=== PATIENT | male | born 1935 | race Caucasian/White ===

== ENCOUNTER 2018-07-07 00:30 | Inpatient (IN) ==
[2018-07-07] MEDS ORDERED: MAGNESIUM HYDROXIDE SUSP 30 ML UDC PO PRN (03:23)
[2018-07-07] MEDS ORDERED: ALUMINUM/MAGNESIUM SUSP 30 ML UDC PO PRN (03:23)
[2018-07-07] MEDS ORDERED: GLUCAGON FOR INJ 1 MG VIAL SQ PRN (03:23)
[2018-07-07] MEDS ORDERED: GLUCOSE 40% GEL 15 GM TUBE PO PRN (03:23)
[2018-07-07] MEDS ORDERED: DEXTROSE 50% 50 ML SYRINGE IV PRN (03:23)
[2018-07-07] MEDS ORDERED: CARBOHYDRATES FOR HYPOGLYCEMIA PO PRN (03:23)
[2018-07-07] MEDS ORDERED: GLUCOSE 10 TABS/TUBE PO PRN (03:23)
[2018-07-07] MEDS ORDERED: POLYETHYLENE (MIRALAX) 17 GM PACK PO PRN (03:23)
[2018-07-07] MEDS ORDERED: ACETAMINOPHEN 325 MG TAB PO PRN (03:23)
[2018-07-07] MEDS ORDERED: NITROGLYCERIN SL 0.4 MG/TAB TAB SL PRN (03:23)
[2018-07-07 03:59] LABS: Basophils # (auto) 0.03 K/uL (0-0.2); Basophils % (auto) 0.2 %; Hematocrit (blood only) 44.5 % (42-52); Hemoglobin 14.8 g/dL (14.0-18.0); Immature Granulocytes # (auto) 0.04 K/uL (0.00-0.02); Immature Granulocytes % (auto) 0.3 %; Lymphocytes # (auto) 0.42 K/uL (1.2-3.4); Lymphocytes % (auto) 3.2 %; Mean Corpuscular Volume 88.6 fL (80-100); Mean Platelet Volume 11.7 fL (7.4-10.4); Monocytes # (auto) 0.21 K/uL (0.11-0.59); Monocytes % (auto) 1.6 %; Neutrophils # (auto) 12.33 K/uL (1.4-6.5); Neutrophils % (auto) 94.7 %; Platelet Count 209 K/uL (130-400); RDW Coefficient of Variation 13.9 % (11.5-14.5); RDW Standard Deviation 45.2 fL (36.4-46.3); Red Blood Count 5.02 M/uL (4.7-6.1); White Blood Count 13.03 K/uL (4.8-10.8)
[2018-07-07 04:00] LABS: Appearance Urine Clear (Clear); Bilirubin Urine Negative (Negative); Color Urine Yellow; Glucose Urine UA Negative (Negative); Ketones Urine Trace (Negative); Leukocyte Esterase Urine Negative (Negative); Nitrite Urine Negative (Negative); Protein Urine Negative (Negative); Specific Gravity Urine 1.017 (1.000-1.030); Urobilinogen Urine Negative (Negative)
--- NOTE | 2018-07-07 04:32 | History & Physical Report ---
Date of Service July 07, 2018 Assessment & Plan (1) Shortness of breath: 83-year-old male was transferred from [facility] and admitted on 07 July 2019 for shortness of breath. Shortness of breath: Patient was transferred for concerns for acute COPD exacerbation as well as respiratory failure. By report, he was in severe respiratory distress with accessory muscle use on arrival to [facility]. The records notes no acute findings on their CXR and an EKG which was borderline but regular tachycardia with rate 100. There the reported concern was a pH of 7.49 on ABG. Same blood gas noted pCO2 of 29, bicarb 22. Troponin negative there. BNP of 32. Rapid influenza negative. Received solumedrol 125 mg there. - Repeating labs on arrival here. - Will keep on azithromycin for COPD exacerbation. - Started on PO prednisone 50 mg daily. Kept on his home Advair. Albuterol prn for SOB or cough/wheezing. SIRS: At [place], temp 100.5, heart rate 97, BP 146/69, WBC of 15, and a lactate of 2.1 (later 1.3). They sent blood cultures. He was empirically treated with ceftriaxone and azithromycin. - Will order CTA chest for further clarification of why he was in so much distress and to look for an infiltrate. - For now, no additional antibiotics as no obvious other evidence of an acute infectious issue. Hematuria: At [place], UA was positive for RBCs. - Will recheck UA here. Ongoing medical issues: - Diabetes: At home is on metformin [address] on insulin sliding scale here and check a HbA1C. - Hypertension: At home is on amlodipine 5 mg daily. Will continue here. -Hypothyroidism: At home is on Synthroid 50 mcg daily. Will continue here. - GERD: At home is on omeprazole 20 mg daily. Will switch to protonix here. - COPD, asthma: See above discussion. At home he is on Advair 250-50 mcg 1 puff twice a day as well as albuterol 4 times a day. Normally on baseline 3L NC oxygen all day/night. Code status: Full code. Diet: Diabetes. DVT prophy: Lovenox. PT/OT: Deferred. Disbo: Admit to PCU/telemetry. (2) Chronic obstructive pulmonary disease: (3) Asthma: (4) SIRS (systemic inflammatory response syndrome): (5) Hematuria: (6) Diabetes mellitus, type 2: (7) Hypertension: (8) Hypothyroidism: (9) GERD (gastroesophageal reflux disease): History of Present Illness Primary Care Provider: NO PCP 83-year-old male initially presented to [facility] complaining of shortness of breath that began the day prior to admission. He says that it was abrupt in onset, worse with walking and exertion, improved with rest. He has a known history of COPD and says his last exacerbation was perhaps 1 month ago ( requiring steroids).. He has noticed recent cough, question of a fever, but no chest pain or other discomfort. At [place] he was treated with treated with Solu-Medrol 125 mcg, DuoNeb, placed on BiPAP, and was given 1 gm of ceftriaxone and 500 mg of azithromycin. Blood cultures were sent and he was given a liter of normal saline. A trial off of BiPAP was apparently unsuccessful. On interview here, found patient resting very comfortably in bed. He says he does not have any present chest pain, shortness of breath, and that overall he feels quite well. He says he normally wears 3 L nasal cannula oxygen all day and night. He has no particular acute concerns. Allergies Allergy/AdvReac Type Severity Reaction Status Date / Time No Known Allergies Allergy Unverified 07/07/18 03:24 Home Medications Home Medications Medication Instructions Recorded Confirmed Type albuterol sulfate [Ventolin HFA] 2 puff INHALATION QID 07/07/18 07/07/18 History amlodipine 5 mg PO DAILY 07/07/18 07/07/18 History fluticasone-salmeterol [Advair 1 inh INHALATION BID 07/07/18 07/07/18 History Diskus] levothyroxine [Synthroid] 50 mcg PO DAILY 07/07/18 07/07/18 History metformin 1,000 mg PO DAILY 07/07/18 07/07/18 History omeprazole 20 mg PO DAILY 07/07/18 07/07/18 History Past Med/Surg History Medical History Hypertension Hypothyroidism Diabetes mellitus, type 2 Chronic obstructive pulmonary disease Social History Current Living Situation: Spouse Feels Safe at Home: Yes Safety Concerns: Feels Safe At This Time Smoking Status: Never smoker Hx Alcohol Use: No Hx Substance Use: No Beliefs That Will Affect Care: None Preferred Language: Korean Communication Ability: Effective Weaving Loom Operator Required: No Review of Systems Constitutional: Denies chills, focal weakness Eyes: Denies any visual loss or diplopia ENT: Denies any ear/nose/throat pain or difficulty speaking or swallowing Respiratory: See HPI. Cardiovascular: Denies any chest pain or feeling of edema Gastrointestinal: Denies any abdominal pain, nausea/vomiting/diarrhea Musculoskeletal: Denies any acute extremity pains, myalgias, or focal weakness Skin: Denies any known acute rashes or lesions Neuro: Denies any headache, acute focal weakness or numbness, or difficulties with speech or swallow. Psych: Denies any recent depression or anxiety Physical Exam 2 Vital Signs (Past 24 Hours): Last Vital Signs Temp 36.7 C 07/07/18 02:55 Resp 20 07/07/18 02:55 BP 146/77 H 07/07/18 02:55 Pulse Ox 94 07/07/18 02:55 Physical Exam: GENERAL: Awake, alert, well-appearing, in no distress HENT: Normocephalic, atraumatic. Oropharynx unremarkable. EYES: Normal conjunctiva. Sclera non-icteric. NECK: Inspection normal. Non-tender. Supple and full ROM. No nuchal rigidity. CARDIAC: +S1S2 RRR, no murmurs. RESPIRATORY: Clear to auscultation. No wheezes or rales. Normal respiratory effort. NC oxygen in place. GI: +BS, soft, non-distended. No tenderness to palpation. No rebound or guarding. No appreciable masses. EXTREMITIES: No pedal edema or calf tenderness. Moving all extremities naturally and easily. NEURO: No gross neuro deficits. Lines: PIV. Results & Data Laboratory Results 07/07/18 07/07/18 07/07/18 Range/Units 03:46 03:46 03:46 WBC (4.8-10.8) K/uL RBC (4.7-6.1) M/uL Hgb (14.0-18.0) g/dL Hct (42-52) % MCV (80-100) fL MCH (25-34) pg MCHC (32-36) g/dL RDW Std Deviation (36.4-46.3) fL RDW Coeff of Johnny (11.5-14.5) % Plt Count (130-400) K/uL MPV (7.4-10.4) fL Immature Gran % (Auto) % Neut % (Auto) % Lymph % (Auto) % [place] % (Auto) % Eos % (Auto) % Baso % (Auto) % Immature Gran # (Auto) (0.00-0.02) K/uL Neut # (Auto) (1.4-6.5) K/uL Lymph # (Auto) (1.2-3.4) K/uL [place] # (Auto) (0.11-0.59) K/uL Eos # (Auto) (0-0.5) K/uL Baso # (Auto) (0-0.2) K/uL PT 11.2 (9.0-12.0) Seconds INR 1.1 (0.9-1.1) APTT 31.0 (21.0-31.0) Seconds PTT Ratio 1.2 Sodium 137 (136-145) mmol/L Potassium 4.5 (3.5-5.1) mmol/L Chloride 104 (98-107) mmol/L Carbon Dioxide 23 (21-32) mmol/L Anion Gap 10.0 (3-11) BUN 16 (7-18) mg/dl Creatinine 1.01 (0.6-1.4) mg/dl Est Cr Clr Drug Dosing 61.1 ml/min Est GFR ( Amer) 80.5 Est GFR (Non-Af Amer) 69.4 BUN/Creatinine Ratio 15.4 (10-20) Glucose 216 H (70-99) mg/dl Estimat Average Glucose Pending Hemoglobin A1c Pending Calcium 8.5 (8.5-10.1) mg/dl Magnesium 1.8 (1.8-2.4) mg/dl Total Bilirubin 1.1 H (0.2-1) mg/dl AST 18 (15-37) U/L ALT 26 (12-78) U/L Alkaline Phosphatase 62 (45-117) U/L Troponin I < 0.015 (0-0.045) ng/ml Total Protein 7.4 (6.4-8.2) gm/dl Albumin 3.3 L (3.4-5.0) gm/dl Globulin 4.1 H (2.5-4.0) gm/dl Albumin/Globulin Ratio 0.8 L (0.9-2) Specimen Hemolysis Urine Color Urine Appearance (Clear) Urine pH (4.5-7.5) Ur Specific [place] (1.000-1.030) Urine Protein (Negative) Urine Glucose (UA) (Negative) Urine Ketones (Negative) Urine Blood (Negative) Urine Nitrite (Negative) Urine Bilirubin (Negative) Urine Urobilinogen (Negative) Ur Leukocyte Esterase (Negative) 07/07/18 07/07/18 Range/Units 03:46 03:35 WBC 13.03 H (4.8-10.8) K/uL RBC 5.02 (4.7-6.1) M/uL Hgb 14.8 (14.0-18.0) g/dL Hct 44.5 (42-52) % MCV 88.6 (80-100) fL MCH 29.5 (25-34) pg MCHC 33.3 (32-36) g/dL RDW Std Deviation 45.2 (36.4-46.3) fL RDW Coeff of Johnny 13.9 (11.5-14.5) % Plt Count 209 (130-400) K/uL MPV 11.7 H (7.4-10.4) fL Immature Gran % (Auto) 0.3 % Neut % (Auto) 94.7 % Lymph % (Auto) 3.2 % [place] % (Auto) 1.6 % Eos % (Auto) 0.0 % Baso % (Auto) 0.2 % Immature Gran # (Auto) 0.04 H (0.00-0.02) K/uL Neut # (Auto) 12.33 H (1.4-6.5) K/uL Lymph # (Auto) 0.42 L (1.2-3.4) K/uL [place] # (Auto) 0.21 (0.11-0.59) K/uL Eos # (Auto) 0.00 (0-0.5) K/uL Baso # (Auto) 0.03 (0-0.2) K/uL PT (9.0-12.0) Seconds INR (0.9-1.1) APTT (21.0-31.0) Seconds PTT Ratio Sodium (136-145) mmol/L Potassium (3.5-5.1) mmol/L Chloride (98-107) mmol/L Carbon Dioxide (21-32) mmol/L Anion Gap (3-11) BUN (7-18) mg/dl Creatinine (0.6-1.4) mg/dl Est Cr Clr Drug Dosing ml/min Est GFR ( Amer) Est GFR (Non-Af Amer) BUN/Creatinine Ratio (10-20) Glucose (70-99) mg/dl Estimat Average Glucose Hemoglobin A1c Calcium (8.5-10.1) mg/dl Magnesium (1.8-2.4) mg/dl Total Bilirubin (0.2-1) mg/dl AST (15-37) U/L ALT (12-78) U/L Alkaline Phosphatase (45-117) U/L Troponin I (0-0.045) ng/ml Total Protein (6.4-8.2) gm/dl Albumin (3.4-5.0) gm/dl Globulin (2.5-4.0) gm/dl Albumin/Globulin Ratio (0.9-2) Specimen Hemolysis Urine Color Yellow Urine Appearance Clear (Clear) Urine pH 5.0 (4.5-7.5) Ur Specific [place] 1.017 (1.000-1.030) Urine Protein Negative (Negative) Urine Glucose (UA) Negative (Negative) Urine Ketones Trace H (Negative) Urine Blood Negative (Negative) Urine Nitrite Negative (Negative) Urine Bilirubin Negative (Negative) Urine Urobilinogen Negative (Negative) Ur Leukocyte Esterase Negative (Negative) Code Status & VTE Plan Code Status Full code VTE Prophylaxis Plan VTE Prophylaxis will be ordered: Yes Supervising Physician Co-Signing Physician Notes Attending addendum: I have physically seen this patient, have supervised the medical residents activities, and agree with the H&P unless as otherwise noted. Assessment and Plan: Acute respiratory failure with hypoxia/COPD-- Accepted in transfer from [place] emergency department to the MICU at [facility]. Upon arrival, with good oxygenation, BiPAP was discontinued, and patient was placed on nasal cannula oxygen, with target to decrease to lowest oxygen possible to give pulse ox approximately 92%. Patient is typically on 3 L nasal cannula oxygen at home. Chest x-ray from [place] was normal, and with acute onset of shortness of breath , would be concerned about the possibility of pulmonary embolism. CT for PE ordered and pending. Will assess for subtle infiltrate as well. Continue azithromycin 500 mg IV for now. Duonebs every 4 hours while awake and every 2 hours when necessary. Continue oral prednisone, and Advair Diskus. Remainder of orders and notations as noted. Resident Activity Tracking Resident Involvement: Resident Care Provided Care Provided: Adult [facility]
[2018-07-07 04:34] LABS: INR 1.1 (0.9-1.1); Partial Thromboplastin Ratio 1.2; Prothrombin Time 11.2 Seconds (9.0-12.0)
[2018-07-07 04:36] LABS: Mean Corpuscular Hgb Conc 33.3 g/dL (32-36)
[2018-07-07 04:37] LABS: Alanine Aminotransferase 26 U/L (12-78); Albumin Globulin Ratio 0.8 (0.9-2); Albumin Level 3.3 gm/dl (3.4-5.0); Alkaline Phosphatase 62 U/L (45-117); Aspartate Aminotransferase 18 U/L (15-37); BUN Creatinine Ratio 15.4 (10-20); Bilirubin,Total 1.1 mg/dl (0.2-1); Blood Urea Nitrogen 16 mg/dl (7-18); Calcium 8.5 mg/dl (8.5-10.1); Carbon Dioxide 23 mmol/L (21-32); Chloride 104 mmol/L (98-107); Creatinine Clr Calc Pharmacy 61.1 ml/min; Est GFR (African American) 80.5; Est GFR (Non-African American) 69.4; Globulin 4.1 gm/dl (2.5-4.0); Glucose 216 mg/dl (70-99); Magnesium 1.8 mg/dl (1.8-2.4); Potassium 4.5 mmol/L (3.5-5.1); Sodium 137 mmol/L (136-145); Total Protein 7.4 gm/dl (6.4-8.2); Troponin I < 0.015 ng/ml (0-0.045)
[2018-07-07] MEDS ORDERED: ALBUTEROL HFA 8 GM INHALER INH PRN (04:50)
[2018-07-07] MEDS ORDERED: OPTIRAY 320 125ml IV PRN (05:39)
[2018-07-07] MEDS: LEVOTHYROXINE SODIUM 50 MCG TABLET PO SCH (06:46)
[2018-07-07 07:09] LABS: Estimated Average Glucose 123 mg/dl
--- NOTE | 2018-07-07 07:35 | CT Scan Report ---
CT ANGIOGRAPHY OF THE CHEST, PULMONARY EMBOLUS PROTOCOL CLINICAL HISTORY: Shortness of breath. COMPARISON STUDY: No previous studies for comparison. TECHNIQUE: Following IV administration of 116 mL of Optiray-320, helical axial images of the chest we re obtained utilizing the pulmonary embolus protocol. Maximal intensity projections and sagittal and coronal reformats were viewed on an independent 3D workstation. IV contrast was administered withou t complication. Automated exposure control was utilized for the study. A dose lowering technique wa s utilized adhering to the principles of ALARA. CT DOSE: 520.11 mGy.cm FINDINGS: No pulmonary emboli are identified. The size of the heart is normal. There is mild dilatat ion of the central pulmonary arteries. There is moderate coronary artery calcification. There is no p ericardial effusion. There are a few mildly enlarged right hilar lymph nodes measure up to 1.2 cm in short axis diameter. Severe emphysema is noted. There is mild right lower lobe opacity. Biapical scar ring is suspected. There is no pneumothorax. There is no pleural effusion. Multifocal mucus plugging is noted, most evident within the right lower lobe. Bony thorax is unremarkable. Fatty infiltration o f the liver is noted. There is a suspected lateral segment hepatic cyst. IMPRESSION: 1. No pulmonary emboli identified. 2. Severe emphysema. 3. Right lower lobe subpleural opacity which may reflect pneumonia or atelectasis. Mucus plugging, mo st evident within the right lower lobe. 4. Mildly enlarged right hilar lymph nodes which may be reactive. A follow-up chest CT in 3 months to ensure resolution is recommended. 5. Fatty infiltration of the liver. 6. Mild dilatation of the central pulmonary arteries which raises the possibility of pulmonary artery hypertension. Electronically signed by: Jagjit Perla M.D. 07/07/2018 7:34 AM
[2018-07-07] MEDS: ENOXAPARIN INJ 40 MG/0.4 ML SYR SQ SCH (08:22)
[2018-07-07] MEDS: AMLODIPINE BESYLATE 5 MG TAB PO SCH (08:23)
[2018-07-07] MEDS: FLUTICASONE/SALMETEROL 250/50 (ADVAIR) 14 PUFF/1 INHALER INH SCH ×2 (08:23→20:32)
[2018-07-07] MEDS: PANTOprazole 40 MG TAB PO SCH (08:23)
[2018-07-07] MEDS: INSULIN ASPART 100 UNITS/ML 3 ML PEN SC SCH ×4 (08:24→20:32)
--- NOTE | 2018-07-07 12:10 | Hospitalist Progress Note ---
Date of Service July 07, 2018 Assessment & Plan (1) Shortness of breath: (2) Chronic obstructive pulmonary disease: (3) Asthma: (4) SIRS (systemic inflammatory response syndrome): (5) Hematuria: (6) Diabetes mellitus, type 2: (7) Hypertension: (8) Hypothyroidism: (9) GERD (gastroesophageal reflux disease): 83-year-old male with history of COPD, chronic respiratory failure O2 dependent was transferred from [facility] and admitted on 07 July 2019 for acute on chronic respiratory failure, COPD exacerbation, Acute on chronic respiratory failure chronic respiratory failure O2 dependent, Associated with shortness of breath: Report from outside hospital, pH of 7.49 on ABG. Same blood gas noted pCO2 of 29, bicarb 22. Troponin negative there. BNP of 32. Rapid influenza negative. Received solumedrol 125 mg there. Possible sIRs, at [place], temp 100.5, heart rate 97, BP 146/69, WBC of 15, and a lactate of 2.1 (later 1.3). Culture was sent, they empirically started ceftriaxone and azithromycin. Continue azithromycin for COPD exacerbation, and Rocephin today because significant dark yellow sputum CT was done after arriving to the hospital, per report: 1. No pulmonary emboli identified. 2. Severe emphysema. 3. Right lower lobe subpleural opacity which may reflect pneumonia or atelectasis. Mucus plugging, most evident within the right lower lobe. 4. Mildly enlarged right hilar lymph nodes which may be reactive. A follow-up chest CT in 3 months to ensure resolution is recommended. 5. Fatty infiltration of the liver. 6. Mild dilatation of the central pulmonary arteries which raises the possibility of pulmonary artery hypertension. Hematuria: At [place], UA was positive for RBCs. Repeat UA was negative, Diabetes with a1c 5.7: At home is on metformin 1000 mg daily. Continue on insulin sliding scale here and check a HbA1C. Hypertension: At home is on amlodipine 5 mg daily. Will continue here. Hypothyroidism: At home is on Synthroid 50 mcg daily. Will continue here. GERD: At home is on omeprazole 20 mg daily. Will switch to protonix here. Full code. px with Lovenox. PT/OT: orderred Subjective Reported has a lot yellow dark sputum cough up this morning, however generalized shortness of breath is better, was on 3 L/min is nasal cannula oxygen at home, currently is in the same level, Denies chest pain, patient is eating lunch, Review of Systems Constitutional: Positive weakness, or fatigue Respiratory: See HPI, occasional wheezing, positive dyspnea on exertion Cardiac: No chest pain, No orthopnea, No PND, No claudication, No palpitations , Abdomen: No pain, No nausea, No vomiting, No diarrhea, No constipation, No GI bleeding Musculoskeletal: No joint pain, No muscle pain, No swelling, No calf pain, No problem reported : No dysuria, No urinary frequency, No incontinence, No hematuria Neurologic: No paralysis, No weakness, No numbness/tingling, No vertigo, No balance problems Psychiatric: No depression symptoms, No anhedonism, No anxiety, No insomnia, No substance abuse Heme: No abnormal bleeding/bruising, No clotting problems, No swollen lymph nodes, No night sweats Skin: No rash, No itch, No new/changing skin lesions, No color change, No bleeding Physical Exam 2 Vital Signs (Past 24 Hours): Last Vital Signs Temp 36.4 C L 07/07/18 07:39 Pulse 66 07/07/18 07:39 Resp 21 07/07/18 07:39 BP 128/75 07/07/18 07:39 Pulse Ox 90 07/07/18 07:39 Physical Exam: General Appearance: Thin, frail, mild labored breathing, mild labored breathing when speaking, WD/WN, no apparent distress, Eyes: normal inspection, PERRL, EOMI, sclerae normal ENT: normal ENT inspection, hearing grossly normal, pharynx normal Neck: supple, no adenopathy, thyroid normal, no JVD, no carotid bruits, trachea midline Respiratory/Chest: chest non-tender, decreased breath sounds, occasional wheezing, no crackle, Cardiovascular: regular rate, rhythm, no JVD, no murmur Abdomen: normal bowel sounds, non tender, soft, no organomegaly, Extremities: normal range of motion, non-tender, normal inspection, no pedal edema, no calf tenderness, normal capillary refill , pelvis stable, joint has no limited range of motion, capillary refill is normal, no cyanosis clubbing Neurologic/Psychiatric: risk control product liability director II-XII nml as tested, no motor/sensory deficits, alert, normal mood/affect, oriented x 3 Skin: normal color, warm/dry, no rash Lymphatic: no adenopathy Results & Data Laboratory Results Laboratory Results - last 24 hr 07/07/18 07/07/18 07/07/18 03:35 03:46 03:46 WBC 13.03 H RBC 5.02 Hgb 14.8 Hct 44.5 MCV 88.6 MCH 29.5 MCHC 33.3 RDW Std Deviation 45.2 RDW Coeff of Johnny 13.9 Plt Count 209 MPV 11.7 H Immature Gran % (Auto) 0.3 Neut % (Auto) 94.7 Lymph % (Auto) 3.2 [place] % (Auto) 1.6 Eos % (Auto) 0.0 Baso % (Auto) 0.2 Immature Gran # (Auto) 0.04 H Neut # (Auto) 12.33 H Lymph # (Auto) 0.42 L [place] # (Auto) 0.21 Eos # (Auto) 0.00 Baso # (Auto) 0.03 PT 11.2 INR 1.1 APTT 31.0 PTT Ratio 1.2 Sodium Potassium Chloride Carbon Dioxide Anion Gap BUN Creatinine Est Cr Clr Drug Dosing Est GFR ( Amer) Est GFR (Non-Af Amer) BUN/Creatinine Ratio Glucose POC Glucose Estimat Average Glucose Hemoglobin A1c Calcium Magnesium Total Bilirubin AST ALT Alkaline Phosphatase Troponin I Total Protein Albumin Globulin Albumin/Globulin Ratio Specimen Hemolysis Urine Color Yellow Urine Appearance Clear Urine pH 5.0 Ur Specific [place] 1.017 Urine Protein Negative Urine Glucose (UA) Negative Urine Ketones Trace H Urine Blood Negative Urine Nitrite Negative Urine Bilirubin Negative Urine Urobilinogen Negative Ur Leukocyte Esterase Negative 07/07/18 07/07/18 07/07/18 03:46 03:46 07:38 WBC RBC Hgb Hct MCV MCH MCHC RDW Std Deviation RDW Coeff of Johnny Plt Count MPV Immature Gran % (Auto) Neut % (Auto) Lymph % (Auto) [place] % (Auto) Eos % (Auto) Baso % (Auto) Immature Gran # (Auto) Neut # (Auto) Lymph # (Auto) [place] # (Auto) Eos # (Auto) Baso # (Auto) PT INR APTT PTT Ratio Sodium 137 Potassium 4.5 Chloride 104 Carbon Dioxide 23 Anion Gap 10.0 BUN 16 Creatinine 1.01 Est Cr Clr Drug Dosing 61.1 Est GFR ( Amer) 80.5 Est GFR (Non-Af Amer) 69.4 BUN/Creatinine Ratio 15.4 Glucose 216 H POC Glucose 191 H Estimat Average Glucose 123 Hemoglobin A1c 5.9 H Calcium 8.5 Magnesium 1.8 Total Bilirubin 1.1 H AST 18 ALT 26 Alkaline Phosphatase 62 Troponin I < 0.015 Total Protein 7.4 Albumin 3.3 L Globulin 4.1 H Albumin/Globulin Ratio 0.8 L Specimen Hemolysis Urine Color Urine Appearance Urine pH Ur Specific [place] Urine Protein Urine Glucose (UA) Urine Ketones Urine Blood Urine Nitrite Urine Bilirubin Urine Urobilinogen Ur Leukocyte Esterase 07/07/18 11:34 WBC RBC Hgb Hct MCV MCH MCHC RDW Std Deviation RDW Coeff of Johnny Plt Count MPV Immature Gran % (Auto) Neut % (Auto) Lymph % (Auto) [place] % (Auto) Eos % (Auto) Baso % (Auto) Immature Gran # (Auto) Neut # (Auto) Lymph # (Auto) [place] # (Auto) Eos # (Auto) Baso # (Auto) PT INR APTT PTT Ratio Sodium Potassium Chloride Carbon Dioxide Anion Gap BUN Creatinine Est Cr Clr Drug Dosing Est GFR ( Amer) Est GFR (Non-Af Amer) BUN/Creatinine Ratio Glucose POC Glucose 163 H Estimat Average Glucose Hemoglobin A1c Calcium Magnesium Total Bilirubin AST ALT Alkaline Phosphatase Troponin I Total Protein Albumin Globulin Albumin/Globulin Ratio Specimen Hemolysis Urine Color Urine Appearance Urine pH Ur Specific [place] Urine Protein Urine Glucose (UA) Urine Ketones Urine Blood Urine Nitrite Urine Bilirubin Urine Urobilinogen Ur Leukocyte Esterase
[2018-07-07] MEDS: cefTRIAXone SODIUM 1,000 MG in DEXTROSE 5% 50 ML IV SCH (13:09)
[2018-07-07] MEDS: AZITHROMYCIN 250 MG TAB PO SCH (20:32)
[2018-07-07] MEDS: predniSONE 50 MG TAB PO SCH (20:32)
[2018-07-08] MEDS: LEVOTHYROXINE SODIUM 50 MCG TABLET PO SCH (05:37)
[2018-07-08 05:45] LABS: Basophils # (auto) 0.01 K/uL (0-0.2); Basophils % (auto) 0.1 %; Hematocrit (blood only) 45.5 % (42-52); Hemoglobin 15.1 g/dL (14.0-18.0); Immature Granulocytes # (auto) 0.09 K/uL (0.00-0.02); Immature Granulocytes % (auto) 0.6 %; Lymphocytes # (auto) 0.83 K/uL (1.2-3.4); Lymphocytes % (auto) 5.3 %; Mean Corpuscular Hgb Conc 33.2 g/dL (32-36); Mean Corpuscular Volume 88.5 fL (80-100); Mean Platelet Volume 11.9 fL (7.4-10.4); Monocytes # (auto) 0.75 K/uL (0.11-0.59); Monocytes % (auto) 4.8 %; Neutrophils # (auto) 14.07 K/uL (1.4-6.5); Neutrophils % (auto) 89.2 %; Platelet Count 264 K/uL (130-400); RDW Coefficient of Variation 13.8 % (11.5-14.5); Red Blood Count 5.14 M/uL (4.7-6.1); White Blood Count 15.75 K/uL (4.8-10.8)
[2018-07-08 06:25] LABS: BUN Creatinine Ratio 28.9 (10-20); Creatinine Clr Calc Pharmacy 66.3 ml/min; Est GFR (African American) 88.9; Est GFR (Non-African American) 76.7; Potassium 4.3 mmol/L (3.5-5.1)
[2018-07-08] MEDS: AMLODIPINE BESYLATE 5 MG TAB PO SCH (08:46)
[2018-07-08] MEDS: FLUTICASONE/SALMETEROL 250/50 (ADVAIR) 14 PUFF/1 INHALER INH SCH ×2 (08:46→21:03)
[2018-07-08] MEDS: ENOXAPARIN INJ 40 MG/0.4 ML SYR SQ SCH (08:46)
[2018-07-08] MEDS: PANTOprazole 40 MG TAB PO SCH (08:47)
[2018-07-08] MEDS: cefTRIAXone SODIUM 1,000 MG in DEXTROSE 5% 50 ML IV SCH (08:51)
[2018-07-08] MEDS: INSULIN ASPART 100 UNITS/ML 3 ML PEN SC SCH ×4 (08:53→21:02)
--- NOTE | 2018-07-08 13:56 | Hospitalist Progress Note ---
Date of Service July 08, 2018 Assessment & Plan (1) Shortness of breath: (2) Chronic obstructive pulmonary disease: (3) Asthma: (4) SIRS (systemic inflammatory response syndrome): (5) Hematuria: (6) Diabetes mellitus, type 2: (7) Hypertension: (8) Hypothyroidism: (9) GERD (gastroesophageal reflux disease): 83-year-old male with history of COPD, chronic respiratory failure O2 dependent was transferred from [facility] and admitted on 07 July 2019 for acute on chronic respiratory failure, COPD exacerbation, Acute on chronic respiratory failure chronic respiratory failure O2 dependent, Associated with shortness of breath: Report from outside hospital, pH of 7.49 on ABG. Same blood gas noted pCO2 of 29, bicarb 22. Troponin negative there. BNP of 32. Rapid influenza negative. Received solumedrol 125 mg Stable and continue improving, currently nasal cannula oxygen is 3.5 L/min, he was using 3 L/min at home, Possible sIRs, at [place], temp 100.5, heart rate 97, BP 146/69, WBC of 15, and a lactate of 2.1 (later 1.3). Culture was sent, they empirically started ceftriaxone and azithromycin. Continue azithromycin for COPD exacerbation, and Rocephin today because significant dark yellow sputum CT was done after arriving to the hospital, per report: 1. No pulmonary emboli identified. 2. Severe emphysema. 3. Right lower lobe subpleural opacity which may reflect pneumonia or atelectasis. Mucus plugging, most evident within the right lower lobe. 4. Mildly enlarged right hilar lymph nodes which may be reactive. A follow-up chest CT in 3 months to ensure resolution is recommended. 5. Fatty infiltration of the liver. 6. Mild dilatation of the central pulmonary arteries which raises the possibility of pulmonary artery hypertension. We will continue nebulizer treatment, IV antibiotics include Rocephin plus oral azithromycin, the new Advair inhaler Hematuria: At [place], UA was positive for RBCs. Repeat UA was negative, Diabetes with a1c 5.7: At home is on metformin 1000 mg daily. Continue on insulin sliding scale here and check a HbA1C. Hypertension: At home is on amlodipine 5 mg daily. Will continue here. Hypothyroidism: At home is on Synthroid 50 mcg daily. Will continue here. GERD: At home is on omeprazole 20 mg daily. Will switch to protonix here. Full code. px with Lovenox. PT/OT: wlilem Hooker, stable on nasal cannula oxygen, continue IV antibiotics, planning to discharge home tomorrow with oral antibiotic Subjective Reported has a lot yellow dark sputum cough up this morning, however generalized shortness of breath is better, was on 3 L/min is nasal cannula oxygen at home, currently is in the same level, Generally feeling better, out of bed to the chair, nasal cannula oxygen has been decreased to 3-1/2 L/min, Review of Systems Constitutional: Positive weakness, or fatigue Respiratory: See HPI, occasional wheezing, positive dyspnea on exertion Cardiac: No chest pain, No orthopnea, Abdomen: No pain, No nausea, No vomiting, No diarrhea, No constipation, No GI bleeding Musculoskeletal: No joint pain, No muscle pain, No swelling, No calf pain, No problem reported : No dysuria, No urinary frequency, No incontinence, No hematuria Neurologic: No paralysis, No weakness, No numbness/tingling, No vertigo, No balance problems Psychiatric: No depression symptoms, No anhedonism, No anxiety, No insomnia, No substance abuse Heme: No abnormal bleeding/bruising, No clotting problems, No swollen lymph nodes, No night sweats Skin: No rash, No itch, No new/changing skin lesions, No color change, No bleeding Physical Exam 2 Vital Signs (Past 24 Hours): Last Vital Signs Temp 36.3 C L 07/08/18 11:19 Pulse 78 07/08/18 11:19 Resp 28 H 07/08/18 11:19 BP 120/61 07/08/18 11:19 Pulse Ox 93 07/08/18 11:19 Physical Exam: General Appearance: Thin, frail, mild labored breathing, still mild labored breathing when speaking, WD/WN, no apparent distress, Eyes: normal inspection, PERRL, EOMI, sclerae normal ENT: normal ENT inspection, hearing grossly normal, pharynx normal Neck: supple, no adenopathy, thyroid normal, no JVD, no carotid bruits, trachea midline Respiratory/Chest: chest non-tender, decreased breath sounds, occasional wheezing, no crackle, Cardiovascular: regular rate, rhythm, no JVD, no murmur Abdomen: normal bowel sounds, non tender, soft, no organomegaly, Extremities: normal range of motion, non-tender, normal inspection, no pedal edema, no calf tenderness, normal capillary refill , pelvis stable, Neurologic/Psychiatric: outsole tacker II-XII nml as tested, no motor/sensory deficits, alert, normal mood/affect, oriented x 3 Skin: normal color, warm/dry, no rash Lymphatic: no adenopathy Results & Data Laboratory Results Laboratory Results - last 24 hr 07/07/18 07/07/18 07/08/18 16:22 20:24 05:25 WBC 15.75 H RBC 5.14 Hgb 15.1 Hct 45.5 MCV 88.5 MCH 29.4 MCHC 33.2 RDW Std Deviation 45.0 RDW Coeff of Johnny 13.8 Plt Count 264 MPV 11.9 H Immature Gran % (Auto) 0.6 Neut % (Auto) 89.2 Lymph % (Auto) 5.3 [place] % (Auto) 4.8 Eos % (Auto) 0.0 Baso % (Auto) 0.1 Immature Gran # (Auto) 0.09 H Neut # (Auto) 14.07 H Lymph # (Auto) 0.83 L [place] # (Auto) 0.75 H Eos # (Auto) 0.00 Baso # (Auto) 0.01 Sodium Potassium Chloride Carbon Dioxide Anion Gap BUN Creatinine Est Cr Clr Drug Dosing Est GFR ( Amer) Est GFR (Non-Af Amer) BUN/Creatinine Ratio Glucose POC Glucose 157 H 142 H Calcium 07/08/18 07/08/18 07/08/18 05:25 07:23 11:17 WBC RBC Hgb Hct MCV MCH MCHC RDW Std Deviation RDW Coeff of Johnny Plt Count MPV Immature Gran % (Auto) Neut % (Auto) Lymph % (Auto) [place] % (Auto) Eos % (Auto) Baso % (Auto) Immature Gran # (Auto) Neut # (Auto) Lymph # (Auto) [place] # (Auto) Eos # (Auto) Baso # (Auto) Sodium 136 Potassium 4.3 Chloride 104 Carbon Dioxide 24 Anion Gap 8.0 BUN 27 H D Creatinine 0.93 Est Cr Clr Drug Dosing 66.3 Est GFR ( Amer) 88.9 Est GFR (Non-Af Amer) 76.7 BUN/Creatinine Ratio 28.9 H Glucose 189 H POC Glucose 167 H 141 H Calcium 9.0
[2018-07-08] MEDS: predniSONE 50 MG TAB PO SCH (21:03)
[2018-07-08] MEDS: AZITHROMYCIN 250 MG TAB PO SCH (21:03)
[2018-07-09] MEDS: LEVOTHYROXINE SODIUM 50 MCG TABLET PO SCH (06:15)
[2018-07-09 07:12] LABS: Basophils # (auto) 0.01 K/uL (0-0.2); Basophils % (auto) 0.1 %; Hematocrit (blood only) 45.3 % (42-52); Hemoglobin 15.1 g/dL (14.0-18.0); Immature Granulocytes # (auto) 0.07 K/uL (0.00-0.02); Immature Granulocytes % (auto) 0.7 %; Lymphocytes # (auto) 0.64 K/uL (1.2-3.4); Lymphocytes % (auto) 6.2 %; Mean Corpuscular Hgb Conc 33.3 g/dL (32-36); Mean Corpuscular Volume 89.3 fL (80-100); Monocytes # (auto) 0.45 K/uL (0.11-0.59); Monocytes % (auto) 4.4 %; Neutrophils # (auto) 9.13 K/uL (1.4-6.5); Neutrophils % (auto) 88.6 %; Platelet Count 266 K/uL (130-400); RDW Coefficient of Variation 13.8 % (11.5-14.5); RDW Standard Deviation 44.9 fL (36.4-46.3); Red Blood Count 5.07 M/uL (4.7-6.1)
[2018-07-09 07:20] VITALS: BP 139/73; PULSE 63; TEMP 97.7; O2SAT 94
[2018-07-09 07:33] LABS: BUN Creatinine Ratio 28.6 (10-20); Calcium 8.7 mg/dl (8.5-10.1); Creatinine Clr Calc Pharmacy 67.1 ml/min; Est GFR (African American) 90.1; Est GFR (Non-African American) 77.7; Potassium 4.7 mmol/L (3.5-5.1)
[2018-07-09] MEDS: FLUTICASONE/SALMETEROL 250/50 (ADVAIR) 14 PUFF/1 INHALER INH SCH (08:00)
[2018-07-09] MEDS: cefTRIAXone SODIUM 1,000 MG in DEXTROSE 5% 50 ML IV SCH (08:00)
[2018-07-09] MEDS: PANTOprazole 40 MG TAB PO SCH (08:00)
[2018-07-09] MEDS: AMLODIPINE BESYLATE 5 MG TAB PO SCH (08:00)
[2018-07-09] MEDS: ENOXAPARIN INJ 40 MG/0.4 ML SYR SQ SCH (08:01)
[2018-07-09] MEDS: INSULIN ASPART 100 UNITS/ML 3 ML PEN SC SCH ×2 (08:02→12:23)
--- NOTE | 2018-07-09 13:57 | Discharge Summary ---
Date of Service July 09, 2018 Admission HPI Per Admitting Provider 83-year-old male initially presented to [facility] complaining of shortness of breath that began the day prior to admission. He says that it was abrupt in onset, worse with walking and exertion, improved with rest. He has a known history of COPD and says his last exacerbation was perhaps 1 month ago ( requiring steroids).. He has noticed recent cough, question of a fever, but no chest pain or other discomfort. At [place] he was treated with treated with Solu-Medrol 125 mcg, DuoNeb, placed on BiPAP, and was given 1 gm of ceftriaxone and 500 mg of azithromycin. Blood cultures were sent and he was given a liter of normal saline. A trial off of BiPAP was apparently unsuccessful. On interview here, found patient resting very comfortably in bed. He says he does not have any present chest pain, shortness of breath, and that overall he feels quite well. He says he normally wears 3 L nasal cannula oxygen all day and night. He has no particular acute concerns. Principal Diagnosis Acute respiratory failure, Discharge Data Allergies Allergy/AdvReac Type Severity Reaction Status Date / Time No Known Allergies Allergy Unverified 07/07/18 03:24 Consultations 07/07/18 03:27 Consult Case Management - Discharge Planning Routine Ordered Studies 07/07/18 03:28 CT angio chest PE protocol Urgent Hospital Course (1) Shortness of breath: (2) Chronic obstructive pulmonary disease: (3) Asthma: (4) SIRS (systemic inflammatory response syndrome): (5) Hematuria: (6) Diabetes mellitus, type 2: (7) Hypertension: (8) Hypothyroidism: (9) GERD (gastroesophageal reflux disease): 83-year-old male with history of COPD, chronic respiratory failure O2 dependent was transferred from [facility] and admitted on 07 July 2019 for acute on chronic respiratory failure, COPD exacerbation, Acute on chronic respiratory failure chronic respiratory failure O2 dependent Associated with shortness of breath: Report from outside hospital, pH of 7.49 on ABG. Same blood gas noted pCO2 of 29, bicarb 22. Troponin negative there. BNP of 32. Rapid influenza negative. Received solumedrol 125 mg Stable and continue improving, has been on nasal cannula oxygen is 3.5 L/min, today is 3LPM, which is his baseline using 3 L/min at home Possible sIRs, at [place], temp 100.5, heart rate 97, BP 146/69, WBC of 15, and a lactate of 2.1 (later 1.3). Culture was sent, they empirically started ceftriaxone and azithromycin. Continue azithromycin for COPD exacerbation, and Rocephin today because significant dark yellow sputum, patient general condition continued to improve, will discharge home with 3 days more of azithromycin, and 7 days more of Augmentin,, advised him to continue DuoNeb treatment and continue Advair,, strongly recommend him to follow-up with PCP and roller mechanic who is Dr. Carvalho CT was done after arriving to the hospital, per report: 1. No pulmonary emboli identified. 2. Severe emphysema. 3. Right lower lobe subpleural opacity which may reflect pneumonia or atelectasis. Mucus plugging, most evident within the right lower lobe. 4. Mildly enlarged right hilar lymph nodes which may be reactive. A follow-up chest CT in 3 months to ensure resolution is recommended. 5. Fatty infiltration of the liver. 6. Mild dilatation of the central pulmonary arteries which raises the possibility of pulmonary artery hypertension. Told patient about the above CT abnormalities, recommend him to follow-up with PCP about these abnormalities Hematuria: At [place], UA was positive for RBCs. Repeat UA was negative, Diabetes with a1c 5.7: At home is on metformin 1000 mg daily. Continue on insulin sliding scale here , continue home medication, Hypertension: At home is on amlodipine 5 mg daily. Will continue here. Hypothyroidism: At home is on Synthroid 50 mcg daily. Will continue here. GERD: At home is on omeprazole 20 mg daily. Will switch to protonix here. Full code. px with Lovenox. PT/OT: orderred MedSurg, stable on nasal cannula oxygen, continue IV antibiotics, planning to discharge home tomorrow with oral antibiotic Subjective upon discharge: Occasional cough, shortness of breath is in baseline, has been up and walk, Review of Systems Constitutional: Lino weakness, or fatigue Respiratory: See HPI, dyspnea on exertion is better Cardiac: No chest pain, No orthopnea, No PND, No claudication, No palpitations , Abdomen: No pain, No nausea, No vomiting, No diarrhea, No constipation, No GI bleeding Musculoskeletal: No joint pain, No muscle pain, No swelling, No calf pain, No problem reported : No dysuria, No urinary frequency, No incontinence, No hematuria Neurologic: No paralysis, No weakness, No numbness/tingling, No vertigo, No balance problems Psychiatric: No depression symptoms, No anhedonism, No anxiety, No insomnia, No substance abuse Heme: No abnormal bleeding/bruising, No clotting problems, No swollen lymph nodes, No night sweats Skin: No rash, No itch, No new/changing skin lesions, No color change, No bleeding History exam upon discharge General Appearance: Thin, frail, mild labored breathing, mild labored breathing when speaking, WD/WN, no apparent distress, Eyes: normal inspection, PERRL, EOMI, sclerae normal ENT: normal ENT inspection, hearing grossly normal, pharynx normal Neck: supple, no adenopathy, thyroid normal, no JVD, no carotid bruits, trachea midline Respiratory/Chest: chest non-tender, decreased breath sounds, occasional wheezing, no crackle, Cardiovascular: regular rate, rhythm, no JVD, no murmur Abdomen: normal bowel sounds, non tender, soft, no organomegaly, Extremities: normal range of motion, non-tender, normal inspection, no pedal edema, no calf tenderness, normal capillary refill , pelvis stable, Neurologic/Psychiatric: data capture specialist II-XII nml as tested, no motor/sensory deficits, alert, normal mood/affect, oriented x 3 Skin: normal color, warm/dry, no rash Lymphatic: no adenopathy Labs reviewed upon discharge : Laboratory Results - last 24 hr 07/08/18 07/08/18 07/09/18 17:12 20:24 06:46 WBC 10.30 RBC 5.07 Hgb 15.1 Hct 45.3 MCV 89.3 MCH 29.8 MCHC 33.3 RDW Std Deviation 44.9 RDW Coeff of Johnny 13.8 Plt Count 266 MPV 12.0 H Immature Gran % (Auto) 0.7 Neut % (Auto) 88.6 Lymph % (Auto) 6.2 [place] % (Auto) 4.4 Eos % (Auto) 0.0 Baso % (Auto) 0.1 Immature Gran # (Auto) 0.07 H Neut # (Auto) 9.13 H Lymph # (Auto) 0.64 L [place] # (Auto) 0.45 Eos # (Auto) 0.00 Baso # (Auto) 0.01 Sodium Potassium Chloride Carbon Dioxide Anion Gap BUN Creatinine Est Cr Clr Drug Dosing Est GFR ( Amer) Est GFR (Non-Af Amer) BUN/Creatinine Ratio Glucose POC Glucose 113 H 97 Calcium Specimen Hemolysis 07/09/18 07/09/18 07/09/18 06:46 07:06 11:01 WBC RBC Hgb Hct MCV MCH MCHC RDW Std Deviation RDW Coeff of Johnny Plt Count MPV Immature Gran % (Auto) Neut % (Auto) Lymph % (Auto) [place] % (Auto) Eos % (Auto) Baso % (Auto) Immature Gran # (Auto) Neut # (Auto) Lymph # (Auto) [place] # (Auto) Eos # (Auto) Baso # (Auto) Sodium 135 L Potassium 4.7 Chloride 104 Carbon Dioxide 24 Anion Gap 7.0 BUN 26 H Creatinine 0.92 Est Cr Clr Drug Dosing 67.1 Est GFR ( Amer) 90.1 Est GFR (Non-Af Amer) 77.7 BUN/Creatinine Ratio 28.6 H Glucose 176 H POC Glucose 166 H 180 H Calcium 8.7 Specimen Hemolysis Total Time Total Time Spent Total Time Spent (In Minutes): 35 Total Time Includes: Examination of the Patient, Discharge Planning, Medication Reconciliation and Communication With Other Providers Discharge Plan Discharge Items Patient Disposition: Home - Self-Care Reason For Visit: ACUTE RESPIRATORY FAILURE, HYPOXIA Discharge Diagnosis: resp failure, pna, copd exac Condition: Fair Discharge Goals: Decrease discomfort, Diagnostic testing, Improve disease control, Improve function and Increase independence Activity: Resume your previous activity Non-emergency contact: Primary Care Provider and Golf Coach Call non-emergency contact if: you have any medication questions Follow-up/Referrals: Leo Hernandez D.O. [Primary Care Provider] - 07/15/18 1:15 pm (Please, follow up at Dr. Hernandez's office on SaturdayJuly 15 at 1:15 pm. *If you need to change this appointment, call the office at [phone].) PCP,NO [Physician] - Diet: Carb Consistent or DM2 Addtl Provider Instructions: you have Acute on chronic respiratory failure in your chest CT showed Severe emphysema, you have Right lower lobe subpleural opacity which may reflect pneumonia or atelectasis. Mucus plugging, most evident within the right lower lobe. you need to follow up with your pcp and Dr. Tovar, you need a follow-up chest CT in 3 months to ensure resolution is recommended of enlarged Lymph node you need to follow up with your primary care physician in 1 week, - take medication as instructed, never overdose or any misuse, or take with alcohol, because misuse of medicine may cause organ damage or , call me , or your primary care physician if have questions of discharge medicaitons. - call your primary care physician, or go to local emergency room if has any fever/chill, chest pain, shortness of breathing, nausea/vomiting/abdominal pain , facial droop/slurry speech/local weakness, or if has any questions. - fall precaution - diet as instructed - you need to follow up with your subspecialist, such as Dr. Tovar Prescriptions: New azithromycin [Zithromax] 250 mg Tablet 250 mg PO QPM 3 Days Qty: 3 RF: 0 amoxicillin-pot clavulanate [Augmentin] 875-125 mg tablet 1 tab PO BID Qty: 7 RF: 0 prednisolone sodium phosphate 30 mg tablet,disintegrating 30 mg PO DAILY Qty: 7 RF: 0 Continue fluticasone-salmeterol [Advair Diskus] 250-50 mcg/dose Blister With Device 1 inh INHALATION BID RF: 0 amlodipine 5 mg Tablet 5 mg PO DAILY RF: 0 levothyroxine [Synthroid] 50 mcg Tablet 50 mcg PO DAILY RF: 0 metformin 1,000 mg Tablet 1,000 mg PO DAILY RF: 0 albuterol sulfate [Ventolin HFA] 90 mcg/actuation Hfa Aerosol Inhaler 2 puff INHALATION QID RF: 0 omeprazole 20 mg Tablet,Delayed Release (Dr/Ec) 20 mg PO DAILY RF: 0 Visit Report Forms: My [facility] Stand-Alone Forms: [facility] Discharge Orders: Discharge Order (Routine); Ordered 07/09/18 Ordered By: Jason Bourgeois Admission Data Admit Date/Time: 07/07/18 02:28 Attending Provider: Jason Bourgeois Admit Provider: Jitendra Godinez Primary Care Provider: Leo Hernandez Other Providers: Jitendra Godinez Service: Medical Other Interventions: Discharge Summary Assessment (RN) Last Done: 07/09/18 13:24 DC Date/Time DO NOT enter until pt leaves facility: 07/09/18 13:41
== END 2018-07-09 13:41 | disposition home or self-care (01) | DRG 193 ==
LOC: 2E 02:28 → SUATTDRO 02:28 → 2W 07-08 13:47